=== PATIENT | female | born 1930 | race Caucasian/White ===

== ENCOUNTER → 2021-11-19 | Outpatient (CLI) | payer OTHER ==
[~2021-11-19] MED LIST: ACTOS30 M1 PO; ASPIRIN ADULT L81 M2 PO; CEFUROXIME AXE500 MG PO; DONEPEZIL HCL10 MG PO; HYDROCODONE-AC1 EAC1 PO; KLOR-CON M1010 ME1 PO; LEXAPRO10 MG PO; METFORMIN HCL500 M2 PO; NEBIVOLOL HCL2.5 MG PO; OMEPRAZOLE MAGN20 MG PO; VITAMIN D350 MC2 PO
== END | disposition home or self-care (01) ==
LOC: ORTHO 00:30
PROVIDERS: ATTEND Orthopaedic Surgery
DX: S72.144D Nondisplaced intertrochanteric fracture of right femur, subsequent encounter for closed fracture with routine healing (principal); X58.XXXA Exposure to other specified factors, initial encounter

== ENCOUNTER 2021-12-14 13:19 | Inpatient (IN) | payer OTHER ==
[~2021-12-14] VITALS: Ht 154.9 cm; Wt 69.0 kg
[~2021-12-14 13:19] MED LIST changes: +OFLOXACIN 5 ML5 M1 OP
[2021-12-14 13:20] VITALS: BP 140/62
[2021-12-14 13:37] LABS: BILIRUBIN Negative (Negative); BLOOD Negative (Negative); CLARITY Clear (Clear); COLOR Yellow (Yellow); GLUCOSE Negative (Negative); KETONE Trace (Negative); LEUKO ESTERASE 3+ (Negative); NITRITE Negative (Negative)
[2021-12-14 13:41] VITALS: BP 153/64
[2021-12-14 13:46] LABS: URINE AMPHETAMINES < 1000 (1000ng/ml); URINE BARBITURATES < 200 (200ng/ml); URINE BENZODIAZEPINES < 200 (200ng/ml); URINE CANNABINOIDS (THC) < 50 (50ng/ml); URINE COCAINE < 300 (300ng/ml); URINE METHADONE < 300 (300ng/ml); URINE OPIATES < 300 (300ng/ml)
[2021-12-14 13:47] LABS: URINE PHENCYCLIDINE < 25 (25ng/ml)
[2021-12-14 13:53] LABS: BACTERIA 3+; EPITHELIAL CELLS 16-20; WBC 31-40 wbc/hpf (0-5)
[2021-12-14 14:23] LABS: BASO % 0.4 % (0.0-1.0); EOS # 0.1 10*3/uL (0.0-0.4); EOS % 2.4 % (1.0-4.0); HEMATOCRIT 33.5 % (37.0-47.0); LYMPH # 1.7 10*3/uL (1.3-4.4); MEAN CELL VOLUME 97.7 fl (81.0-99.0); MEAN CORPUSCULAR HGB 30.9 pg (27.0-31.0); MEAN CORPUSCULAR HGB CONC 31.6 g/dl (33.0-37.0); MEAN PLATELET VOLUME 9.9 fl (9.6-12.3); MONO # 0.4 10*3/uL (0.1-1.0); MONO % 9.6 % (3.0-9.0); NEUT # 2.3 10*3/uL (2.3-7.9); NEUT % 49.4 % (47.0-73.0); PLATELET COUNT AUTOMATED 203 10*3/uL (130-400); RED BLOOD COUNT 3.43 10*6/uL (4.10-5.10); RED CELL DISTRI WIDTH 16.3 % (0-14.5); WHITE BLOOD COUNT 4.6 10*3/uL (4.8-10.8)
[2021-12-14 14:42] LABS: CREATININE 1.27 mg/dL (0.55-1.02); POTASSIUM 4.8 mmol/L (3.5-5.1); TOTAL PROTEIN 6.7 gm/dL (6.4-8.2)
[2021-12-14] MEDS ORDERED: ATIVAN0.5 MG PO (15:19)
[2021-12-14] MEDS ORDERED: TYLENOL325 M1 PO (15:19)
[2021-12-14] MEDS ORDERED: SENNA8.6 MG PO (15:20)
[2021-12-14] MEDS ORDERED: VENT7GM INH (15:21)
[2021-12-14 15:40] VITALS: BP 140/70
[2021-12-14 20:00] VITALS: BP 145/63
[2021-12-15] VITALS: BP 147/50
[2021-12-15] MEDS ORDERED: ATIVAN0.5 MG PO (00:23)
[2021-12-15] MEDS ORDERED: B12 ACTIVE1000 MCG PO (00:25)
[2021-12-15 06:10] LABS: BUN 19 mg/dl (7-24); CHLORIDE 108 mmol/L (98-107); POTASSIUM 4.5 mmol/L (3.5-5.1); SODIUM 137 mmol/L (136-145)
[2021-12-15 06:19] LABS: BASO % 0.6 % (0.0-1.0); EOS # 0.2 10*3/uL (0.0-0.4); EOS % 4.9 % (1.0-4.0); HEMATOCRIT 32.8 % (37.0-47.0); LYMPH # 1.9 10*3/uL (1.3-4.4); LYMPH % 39.3 % (27.0-41.0); MEAN CELL VOLUME 95.9 fl (81.0-99.0); MEAN CORPUSCULAR HGB 30.4 pg (27.0-31.0); MEAN CORPUSCULAR HGB CONC 31.7 g/dl (33.0-37.0); MEAN PLATELET VOLUME 10.1 fl (9.6-12.3); MONO # 0.5 10*3/uL (0.1-1.0); MONO % 9.6 % (3.0-9.0); NEUT # 2.2 10*3/uL (2.3-7.9); NEUT % 45.4 % (47.0-73.0); PLATELET COUNT AUTOMATED 181 10*3/uL (130-400); RED BLOOD COUNT 3.42 10*6/uL (4.10-5.10); RED CELL DISTRI WIDTH 16.2 % (0-14.5); WHITE BLOOD COUNT 4.9 10*3/uL (4.8-10.8)
[2021-12-15 06:22] LABS: ALKALINE PHOSPHATASE 65 U/L (45-117); CREATININE 1.04 mg/dL (0.55-1.02); SGOT/AST 16 IU/L (3-35); SGPT/ALT 8 U/L (12-78); TOTAL PROTEIN 6.2 gm/dL (6.4-8.2)
[2021-12-15 07:50] LABS: VITAMIN D, 25-HYDROXY 43.6 ng/mL (30-100)
[2021-12-15 08:00] VITALS: BP 156/73
[2021-12-15 12:00] VITALS: BP 129/58
[2021-12-15 16:00] VITALS: BP 154/71
[2021-12-15 20:00] VITALS: BP 144/53
[2021-12-16] VITALS: BP 142/51
[2021-12-16 06:06] LABS: CREATININE 1.08 mg/dL (0.55-1.02); POTASSIUM 4.6 mmol/L (3.5-5.1); TOTAL PROTEIN 6.6 gm/dL (6.4-8.2)
[2021-12-16 06:44] LABS: BASO # 0.1 10*3/uL (0.0-0.1); BASO % 0.8 % (0.0-1.0); EOS # 0.3 10*3/uL (0.0-0.4); EOS % 5.1 % (1.0-4.0); LYMPH # 2.5 10*3/uL (1.3-4.4); LYMPH % 41.8 % (27.0-41.0); MEAN CELL VOLUME 97.6 fl (81.0-99.0); MEAN CORPUSCULAR HGB 31.1 pg (27.0-31.0); MEAN CORPUSCULAR HGB CONC 31.8 g/dl (33.0-37.0); MEAN PLATELET VOLUME 10.5 fl (9.6-12.3); MONO # 0.7 10*3/uL (0.1-1.0); MONO % 10.7 % (3.0-9.0); NEUT # 2.5 10*3/uL (2.3-7.9); NEUT % 41.4 % (47.0-73.0); PLATELET COUNT AUTOMATED 189 10*3/uL (130-400); RED BLOOD COUNT 3.38 10*6/uL (4.10-5.10); WHITE BLOOD COUNT 6.1 10*3/uL (4.8-10.8)
[2021-12-16 08:00] VITALS: BP 146/74
[2021-12-16 12:00] VITALS: BP 150/67
[2021-12-16 16:00] VITALS: BP 152/63
[2021-12-16 20:00] VITALS: BP 133/50
[2021-12-17] VITALS: BP 134/62
[2021-12-17 08:00] VITALS: BP 155/85
[2021-12-17 12:00] VITALS: BP 156/82
[2021-12-17 16:00] VITALS: BP 122/95
[2021-12-17 20:00] VITALS: BP 146/55
[2021-12-18] VITALS: BP 147/63
[2021-12-18 06:12] LABS: BASO % 0.6 % (0.0-1.0); EOS # 0.3 10*3/uL (0.0-0.4); EOS % 5.1 % (1.0-4.0); HEMATOCRIT 32.6 % (37.0-47.0); LYMPH # 2.4 10*3/uL (1.3-4.4); LYMPH % 45.1 % (27.0-41.0); MEAN CELL VOLUME 96.7 fl (81.0-99.0); MEAN CORPUSCULAR HGB 31.5 pg (27.0-31.0); MEAN CORPUSCULAR HGB CONC 32.5 g/dl (33.0-37.0); MEAN PLATELET VOLUME 10.2 fl (9.6-12.3); MONO # 0.6 10*3/uL (0.1-1.0); PLATELET COUNT AUTOMATED 175 10*3/uL (130-400); RED BLOOD COUNT 3.37 10*6/uL (4.10-5.10); RED CELL DISTRI WIDTH 15.8 % (0-14.5); WHITE BLOOD COUNT 5.3 10*3/uL (4.8-10.8)
[2021-12-18 06:32] LABS: CREATININE 0.96 mg/dL (0.55-1.02)
[2021-12-18 08:00] VITALS: BP 152/62
[2021-12-18 12:00] VITALS: BP 112/60
[2021-12-18 16:00] VITALS: BP 136/75
[2021-12-18 20:00] VITALS: BP 127/62
[2021-12-19] VITALS: BP 133/59
[2021-12-19 07:00] LABS: BUN 16 mg/dl (7-24); CHLORIDE 106 mmol/L (98-107); CREATININE 0.95 mg/dL (0.55-1.02); SODIUM 136 mmol/L (136-145)
[2021-12-19 08:00] VITALS: BP 149/66
[2021-12-19 12:00] VITALS: BP 112/57
[2021-12-19] MEDS ORDERED: ATIVAN0.5 MG PO (12:01)
[2021-12-19] MEDS ORDERED: HYDROCODONE-AC1 EAC1 PO (12:01)
[2021-12-19] MEDS ORDERED: Humalog SQ (12:04)
== END 2021-12-19 16:01 | DRG 640 ==
LOC: ED 13:19 → EDHOLD 15:01 → 5E 15:01
PROVIDERS: Family Medicine; Registered Nurse; ADMIT Internal Medicine; ATTEND Internal Medicine
DX: E83.42 Hypomagnesemia (principal); G93.41 Metabolic encephalopathy; N17.0 Acute kidney failure with tubular necrosis; E11.22 Type 2 diabetes mellitus with diabetic chronic kidney disease; N18.31 Chronic kidney disease, stage 3a; F03.90 Unspecified dementia, unspecified severity, without behavioral disturbance, psychotic disturbance, mood disturbance, and anxiety; D64.9 Anemia, unspecified; Z20.822 Contact with and (suspected) exposure to COVID-19; E87.8 Other disorders of electrolyte and fluid balance, not elsewhere classified; E11.65 Type 2 diabetes mellitus with hyperglycemia; K21.9 Gastro-esophageal reflux disease without esophagitis; Z95.0 Presence of cardiac pacemaker; Z79.4 Long term (current) use of insulin